=== PATIENT | female | born 1950 | race Caucasian/White ===

== ENCOUNTER → 2017-12-21 11:58 | Outpatient (CLI) | payer MEDICARE, SELFPAY ==
[2017-12-21 13:10] LABS: Add Manual Diff / Slide Review NO; Basophils Percent Auto 2.3 % (0-2); Eosinophils Percent Auto 3.7 % (2-4); Hematocrit 36.3 % (36-46); Hemoglobin 12.7 g/dL (12.0-16.0); Lymphocytes Percent Auto 47.9 % (25-40); Mean Corpuscular Hemoglobin 30.5 PG (26-34); Mean Corpuscular Volume 87.2 fL (80-100); Monocytes Percent Auto 7.7 % (3-14); Neutrophils Absolute Auto 2400 /uL (3000-5900); Neutrophils Percent Auto 38.4 % (50-75); Platelet Count 288 X10^3/uL (150-400); Red Blood Cell Count 4.16 X10^6/uL (4.0-5.2); Red Cell Distribution Width 12.4 % (11.6-14.8); White Blood Cell Count 6.2 X10^3/uL (4.5-11.0)
[2017-12-21 13:22] LABS: Alanine Aminotransferase 22 IU/L (9-52); Albumin Globulin Ratio 1.4 (1.0-2.8); Alkaline Phosphatase 61 U/L (38-126); Aspartate Aminotransferase 23 IU/L (14-36); BUN Creatinine Ratio 28.3 (6-22); Bilirubin Total 0.5 mg/dL (0.2-1.3); Calcium 9.1 mg/dL (8.4-10.2); Cholesterol 188 mg/dL (140-199); Estimated Glomerular Filt Rate > 60.0 mL/min (>60); Globulin 2.9 g/dL (1.7-4.1); Glucose 81 mg/dL (80-110); HDL Cholesterol 43 mg/dL (40-60); HEMOLYSIS < 15 (0-50); LDL Cholesterol Calculated 126 mg/dL (<100); Potassium 4.5 mmol/L (3.4-5.1); Sodium 139 mmol/L (137-145); Total Protein 6.9 g/dL (6.3-8.2); Triglycerides 96 mg/dL (35-150)
[2017-12-21 13:52] LABS: Thyroid Stimulating Hormone 1.44 uIU/mL (0.47-4.68)
== END ==
PROVIDERS: Family Provider Family Medicine; PCP Family Medicine; Visit Provider Family Medicine
DX: R53.83 Other fatigue (principal); E78.5 Hyperlipidemia, unspecified
CPT/HCPCS: 36415; 80053; 80061; 84443; 85025

== ENCOUNTER 2018-11-04 21:51 | Emergency (ER) | payer MEDICARE, SELFPAY ==
[2018-11-04 21:57] VITALS: BP 170/68; PULSE 74; RESP 18; TEMP 36.2; O2SAT 99; BMI 22.1
[2018-11-04] MEDS: EPINEPHrine 1 MG/ML AMPUL 0.5 MG IM (22:17)
[2018-11-04] MEDS: FAMOTIDINE 20 MG/50 ML PIGGYBACK 200 MG IV (22:17)
[2018-11-04] MEDS: methylPREDNISolone 125 MG/2 ML VIAL IV (22:18)
[2018-11-04 22:30] VITALS: BP 118/29; PULSE 105; RESP 21; O2SAT 100
--- NOTE | 2018-11-04 22:50 | PC.NURSE ---
patient given ice chips. provider okayed. no new orders at this time.
[2018-11-04 23:00] VITALS: BP 117/69; PULSE 92; RESP 20; O2SAT 98
--- NOTE | 2018-11-04 23:04 | ED.ALLEREA ---
HPI - Allergic Reaction General Chief complaint: Allergic Reaction Stated complaint: allergic reaction, throat closing up Time Seen by Provider: 11/04/18 21:53 Source: patient and family Mode of arrival: ambulatory Limitations: no limitations History of Present Illness HPI narrative: 68-year-old female nonsmoker with history exercise induced asthma and food related allergic reactions presents with her in the chief complaint of facial itching, redness and swelling as well as tongue swelling after eating a new type of partida. She has had prior food related allergic reactions to shrimp and various others but never to partida or other similar foods. She denies any new medications, lotions, soaps or other potential triggers. She denies any trouble breathing and has no welts or other type rash. She denies any abdominal pain or diarrhea. She took 75 mg of Benadryl prior to arrival MD complaint: allergic reaction and facial swelling Onset (ago): minute(s) Exposure: food Known history of allergy to: Trip Symptoms: rash and difficulty swallowing Severity: moderate Treatment prior to arrival: benadryl Previous Allergic Reaction History: prior ED visit(s) Related Data Home Medications Medication Instructions Recorded Confirmed [CMP ESTRIOL] See Rx Instructions VAGINAL SEE 12/27/17 12/27/17 INSTRUCTIONS gm diphenhydramine HCl [Benadryl] 100 mg PO Q4-6H PRN 11/04/18 11/04/18 estradiol 11/04/18 Previous Rx's Medication Instructions Recorded conjugated estrogens [Premarin] 1 adan VAGINAL QDAY #30 gm 04/07/16 sulfamethoxazole-trimethoprim 1 tab PO BID #10 tab 01/28/17 albuterol sulfate [Proventil HFA] 0 INH SEE INSTRUCTIONS #17 gm 05/18/17 ciprofloxacin HCl 750 mg PO BID #28 tab 08/09/17 estradiol 0.5 mg PO QDAY #90 tab 06/13/18 prednisone 40 mg PO DAILY 4 Days #8 tab 11/04/18 Allergies Allergy/AdvReac Type Severity Reaction Status Date / Time shellfish derived Allergy Mild SHRIMP AND Verified 11/04/18 22:00 [SHELLFISH DERIVED] SHELLFISH shrimp Allergy Verified 11/04/18 22:00 codeine [CODEINE] AdvReac Severe VERY ILL Verified 11/04/18 22:00 Review of Systems Review of Systems ROS Unobtainable: All systems reviewed & are unremarkable except as noted in HPI and below Constitutional Denies chills, Denies fever(s), Denies lethargy and Denies weakness Eyes Denies change in vision, Denies eye discharge, Denies irritation and Denies loss of vision ENT Ears, Nose, Mouth, and Throat: Denies change in voice, Denies neck pain, Denies sore throat and Reports tongue swelling Cardiovascular Denies chest pain, Denies irregular heart rhythm, Denies lightheadedness, Denies palpitations, Denies dyspnea, Denies dyspnea on exertion and Denies orthopnea Respiratory Denies cough, Denies dyspnea, Denies dyspnea on exertion and Denies wheezing Gastrointestinal Gastrointestinal: Denies abdominal pain, Denies change in bowel habits, Denies diarrhea, Denies nausea and Denies vomiting Genitourinary Denies hematuria, Denies flank pain, Denies urinary incontinence and Denies urinary urgency Musculoskeletal Denies neck pain Integumentary/Breasts Denies pruritus, Denies erythema, Reports rash (mild on face, largely gone by arrival) and Denies wounds Neurologic Denies confusion, Denies loss of vision and Denies weakness Psychiatric Denies anxiety, Denies confusion, Denies depression, Denies homicidal ideation and Denies suicidal ideation Endocrine Denies palpitations Hematologic/Lymphatic Denies easy bruising Allergic/Immunologic Reports tongue swelling and Denies wheezing [facility] Surgical History History of carpal tunnel repair History of carpal tunnel repair History of tonsillectomy S/P total abdominal hysterectomy and bilateral salpingo-oophorectomy Status post hysterectomy Status post hysterectomy Family History (Updated 08/26/14 @ 00:00 by Conversion Provider) Father Heart disease Grandfather Lung disease Grandmother Broken hip Grandfather Colon cancer Grandmother Stroke Social History Smoking Status: Never smoker Family History Father Heart disease Grandfather Lung disease Grandmother Broken hip Grandfather Colon cancer Grandmother Stroke Social History Smoking Status: Never smoker Exam Narrative Exam Narrative: GENERAL: 68-year-old female appears younger than stated age and in no obvious or significant distress HEAD: Atraumatic. Normocephalic. No temporal or scalp tenderness. EYES: Pupils equal round and reactive. Extraocular motions intact. No scleral icterus. No injection or drainage. ENT: Nose without bleeding, purulent drainage or septal hematoma. Throat without erythema, tonsillar hypertrophy or exudate. Uvula midline. Airway patent. NECK: Trachea midline. No JVD or lymphadenopathy. Supple, nontender, no meningeal signs. CARDIOVASCULAR: Regular rate and rhythm without murmurs, gallops, or rubs. RESPIRATORY: Clear to auscultation. Breath sounds equal bilaterally. No wheezes, rales, or rhonchi. GASTROINTESTINAL: Abdomen soft, non-tender, nondistended. No hepato-splenomegaly, or palpable masses. No guarding. EXTREMITIES: No clubbing, cyanosis, or edema. No joint tenderness, effusion, or edema noted. BACK: Nontender without deformity or crepitance. No flank tenderness. NEURO: AOx3. SKIN: No rash or erythema. Initial Vital Signs Initial Vital Signs: Vital Signs Temperature 97.2 F L 11/04/18 21:57 Pulse Rate 74 11/04/18 21:57 Respiratory Rate 18 11/04/18 21:57 Blood Pressure 170/68 H 11/04/18 21:57 Pulse Oximetry 99 11/04/18 21:57 Course Orders Ordered: Discontinued Medications Epinephrine HCl (Adrenalin) 0.5 mg IM NOW ONE Stop: 11/04/18 22:14 Last Admin: 11/04/18 22:17 Dose: 0.5 mg Epinephrine HCl (Adrenalin) 0.5 mg IM NOW ONE Stop: 11/04/18 22:14 Last Admin: 11/04/18 22:28 Dose: Not Given Famotidine (Pepcid) 20 mg in 50 mls @ 200 mls/hr IV NOW ONE Stop: 11/04/18 22:27 Last Infusion: 11/04/18 22:44 Dose: 0 mls/hr Admin: 11/04/18 22:17 Dose: 200 mls/hr Methylprednisolone (Solu-Medrol 125 Mg Vial) 125 mg IV NOW ONE Stop: 11/04/18 22:14 Last Admin: 11/04/18 22:18 Dose: 125 mg Vital Signs - 8 hr 11/04/18 21:57 11/04/18 22:30 11/04/18 23:00 Temperature 97.2 F L Pulse Rate 74 105 H 92 H Respiratory Rate 18 21 20 Blood Pressure 170/68 H Blood Pressure [Left Arm] 118/29 L 117/69 Pulse Oximetry 99 100 98 MDM - Allergic Reaction MDM Narrative Medical decision making narrative: Multiple etiologies for patient's symptoms considered including: [Allergic reaction to food, other environmental exposure versus other] Patient's symptoms improved or duration of stay with above-stated therapies. Findings and discharge diagnosis discussed with patient/family followed by verbalization of understanding Return precautions discussed with patient/family whom verbalize understanding. Discharge Plan Departure Patient Disposition: Home Clinical Impression: Allergic reaction Qualifiers: Encounter type: initial encounter Qualified Code(s): T78.40XA - Allergy, unspecified, initial encounter Discharge Date/Time: 11/04/18 23:28 Interventions: ED Discharge Assessment Last Done: 11/04/18 23:27 Instructions: DI for General Allergic Reactions Activity Restrictions/Additional Instructions: *You have been diagnosed with [ allergic reaction ] *What to do: *Take medications as directed: over the counter benadryl, pepcid as well as prescription for Prednisone. *Follow up with your primary care provider in 2-3 days, call for an appointment. Let them know you were seen in the Emergency Department and that we ask that you be seen in follow up *Return to ER if you should have any new, worsening or concerning symptoms, such as [ difficulty breathing, swelling, trouble swallowing or other bothersome symptoms Prescriptions: New prednisone 20 mg tablet 40 mg PO DAILY 4 Days Qty: 8 RF: 0 No Action conjugated estrogens [Premarin] 0.625 MG/GM cream 1 adan Vaginal QDAY Qty: 30 RF: 3 sulfamethoxazole-trimethoprim 800 MG/160 MG tablet 1 tab PO BID Qty: 10 RF: 0 albuterol sulfate [Proventil HFA] 90 MCG/PUFF HFA aerosol inhaler INH SEE INSTRUCTIONS Qty: 17 RF: 3 ciprofloxacin HCl 750 MG tablet 750 mg PO BID Qty: 28 RF: 0 estradiol 0.5 mg tablet 0.5 mg PO QDAY Qty: 90 RF: 3 [CMP ESTRIOL] cream See Patient Comments Vaginal SEE INSTRUCTIONS RF: 3 estradiol 0.5 mg tablet RF: 0 diphenhydramine HCl [Benadryl] 25 mg Capsule 100 mg PO Q4-6H PRN (Reason: Allergy Symptoms) RF: 0 Referrals: Zenon Sood MD [Primary Care Provider] -
== END 2018-11-04 23:28 | disposition home or self-care (01) ==
PROVIDERS: Emergency Provider Emergency Medicine; PCP Family Medicine
DX: T78.40XA Allergy, unspecified, initial encounter (principal)
CPT/HCPCS: 96365; 96375; 99283; 99284; J0171; J2930

== ENCOUNTER → 2018-12-25 14:19 | Outpatient (CLI) | payer MEDICARE, SELFPAY ==
[2018-12-25 14:58] LABS: Add Manual Diff / Slide Review NO; Basophils Absolute Auto 100 /uL (0-100); Basophils Percent Auto 1.4 % (0-2); Eosinophils Absolute Auto 300 /uL (0-450); Eosinophils Percent Auto 3.9 % (2-4); Hematocrit 41.3 % (36-46); Hemoglobin 13.8 g/dL (12.0-16.0); Lymphocytes Absolute Auto 3400 /uL (1100-4500); Lymphocytes Percent Auto 51.5 % (25-40); Mean Corpuscular HGB Conc 33.4 % (30-36); Mean Corpuscular Hemoglobin 29.9 PG (26-34); Mean Corpuscular Volume 89.4 fL (80-100); Monocytes Absolute Auto 500 /uL (0-900); Monocytes Percent Auto 7.2 % (3-14); Neutrophils Absolute Auto 2400 /uL (1500-7000); Platelet Count 290 X10^3/uL (150-400); Red Blood Cell Count 4.62 X10^6/uL (4.0-5.2); Red Cell Distribution Width 12.4 % (11.6-14.8); White Blood Cell Count 6.6 X10^3/uL (4.5-11.0)
[2018-12-25 15:13] LABS: Alanine Aminotransferase 25 IU/L (9-52); Albumin 4.5 g/dL (3.5-5.0); Albumin Globulin Ratio 1.7 (1.0-2.8); Alkaline Phosphatase 61 U/L (38-126); Aspartate Aminotransferase 28 IU/L (14-36); Bilirubin Total 0.5 mg/dL (0.2-1.3); Blood Urea Nitrogen 12 mg/dL (7-17); Calcium 9.4 mg/dL (8.4-10.2); Carbon Dioxide 29 mmol/L (22-32); Chloride 100 mmol/L (98-107); Cholesterol 229 mg/dL (140-199); Estimated Glomerular Filt Rate > 60.0 mL/min (>60); Globulin 2.7 g/dL (1.7-4.1); Glucose 83 mg/dL (80-110); HDL Cholesterol 54 mg/dL (40-60); HEMOLYSIS < 15 (0-50); LDL Cholesterol Calculated 149 mg/dL (<100); Potassium 4.2 mmol/L (3.4-5.1); Sodium 139 mmol/L (137-145); Total Protein 7.2 g/dL (6.3-8.2); Triglycerides 130 mg/dL (35-150)
[2018-12-25 15:43] LABS: Thyroid Stimulating Hormone 2.62 uIU/mL (0.47-4.68)
== END ==
PROVIDERS: PCP Family Medicine; Visit Provider Family Medicine
DX: E78.5 Hyperlipidemia, unspecified (principal)
CPT/HCPCS: 36415; 80053; 80061; 84443; 85025

== ENCOUNTER → 2018-12-26 14:38 | Outpatient (CLI) | payer MEDICARE, SELFPAY ==
--- NOTE | 2018-12-26 | DI.MG.S_ITS ---
BILATERAL DIGITAL SCREENING MAMMOGRAM 3D/2D WITH CAD: 12/26/2018 CLINICAL: Routine screening. Comparison is made to exams dated: 12/22/2017 mammogram, 12/14/2016 mammogram, and 12/05/2015 mammogram - [facility]. The tissue of both breasts is heterogeneously dense. This may lower the sensitivity of mammography. Current study was also evaluated with a Computer Aided Detection (CAD) system. There are benign calcifications in both breasts. No significant masses, calcifications, or other findings are seen in either breast. There has been no significant interval change. IMPRESSION: There is no mammographic evidence of malignancy. A 1 year screening mammogram is recommended. This exam was interpreted at Station ID: [id number]. NOTE: For mammograms, a report in lay terms will be sent to the patient. Approximately 15% of breast malignancies will not be visualized mammographically. In the management of a palpable breast mass, a negative mammogram must not discourage biopsy of a clinically suspicious lesion. Electronically Signed By: Jeff goodman/manisha:12/26/2018 16:45:44 letter sent: Normal Exam ACR BI-RADS Category 2: Benign Finding(s) 3342F
== END ==
PROVIDERS: PCP Family Medicine; Visit Provider Family Medicine
DX: Z12.31 Encounter for screening mammogram for malignant neoplasm of breast (principal)
CPT/HCPCS: 77063; 77067

== ENCOUNTER 2019-05-15 13:11 | Emergency (ER) | payer MEDICARE, SELFPAY ==
[2019-05-15 13:27] VITALS: BP 123/77; PULSE 81; RESP 14; TEMP 36.2; O2SAT 98; BMI 21.6
--- NOTE | 2019-05-15 13:32 | DI.US.S_ITS ---
PROCEDURE: US PERIPH VENOUS LOW EXTREM RT INDICATIONS: CALF PAIN/SWELLING TECHNIQUE: Real-time imaging, as well as color and pulse Doppler interrogation, were performed of the lower extremity deep veins from the inguinal ligament to the popliteal fossa. COMPARISON: None. FINDINGS: The common femoral, femoral and popliteal veins are normally compressible, and free of intraluminal thrombus. Color and pulse Doppler demonstrate normal phasic intraluminal flow. There is normal augmentation response to distal compression maneuver. IMPRESSION: Negative for deep venous thrombosis. Dictated by: Dylan Gleason M.D. on 05/15/2019 at 13:23 Approved by: Dylan Gleason M.D. on 05/15/2019 at 13:24
--- NOTE | 2019-05-15 13:59 | ED_ITS ---
HPI - Extremity Problem <Dania Montero PA-C - Last Filed: 05/15/19 17:04> General Chief complaint: Extremity Problem,Nontraumatic Stated complaint: RIGHT LEG PAIN Time Seen by Provider: 05/15/19 13:32 Source: patient Mode of arrival: Wheelchair Limitations: no limitations History of Present Illness HPI Narrative: This 69-year-old female comes to ED secondary to acutely worsening right calf pain. She states that she noticed this Tuesday evening, does not remember any specific trauma but did trip week or 2 ago, did notice any pain at the time and has been walking a couple of miles daily. She denies other trauma. She states pain felt a little better Tuesday, still present on Tuesday. Saw her chiropractor for adjustment and thought somewhat better after that as well. Today, she was cleaning and standing on a chair. She stepped down onto that foot and felt severe pain in the calf and had trouble walking after that. She states the calf felt warm. She iced it which seemed to help that but not the pain very much. She states pain is better now than earlier. She denies any swelling in the leg. She denies any bites or rashes. She denies any chest pain or dyspnea. No recent periods of immobility. No history of blood clots. States she has felt otherwise well. She has not tried any other home treatments aside from ice Related Data Home Medications Medication Instructions Recorded Confirmed [CMP ESTRIOL] See Rx Instructions VAGINAL SEE 12/27/17 12/28/18 INSTRUCTIONS gm diphenhydramine HCl [Benadryl] 100 mg PO Q4-6H PRN 11/04/18 12/28/18 estradiol 11/04/18 12/28/18 Previous Rx's Medication Instructions Recorded conjugated estrogens [Premarin] 1 adan VAGINAL QDAY #30 gm 04/07/16 estradiol 0.5 mg PO QDAY #90 tab 06/13/18 Allergies Allergy/AdvReac Type Severity Reaction Status Date / Time shellfish derived Allergy Mild SHRIMP AND Verified 05/15/19 13:27 [SHELLFISH DERIVED] SHELLFISH shrimp Allergy Verified 05/15/19 13:27 codeine [CODEINE] AdvReac Severe VERY ILL Verified 05/15/19 13:27 Review of Systems <Dania Montero PA-C - Last Filed: 05/15/19 17:04> Review of Systems ROS Unobtainable: All systems reviewed & are unremarkable except as noted in HPI and below PFSH <Dania Montero PA-C - Last Filed: 05/15/19 17:04> Medical History (Updated 05/15/19 @ 15:15 by Dania Montero PA-C) No chronic problems (Acute) Surgical History History of carpal tunnel repair History of carpal tunnel repair History of tonsillectomy S/P total abdominal hysterectomy and bilateral salpingo-oophorectomy Status post hysterectomy Status post hysterectomy Family History Father Heart disease Grandfather Lung disease Grandmother Broken hip Grandfather Colon cancer Grandmother Stroke Social History Smoking Status: Never smoker Family History Father Heart disease Grandfather Lung disease Grandmother Broken hip Grandfather Colon cancer Grandmother Stroke Social History Smoking Status: Never smoker Exam <Dania Montero PA-C - Last Filed: 05/15/19 17:04> Narrative Exam Narrative: GENERAL APPEARANCE: Patient sitting comfortably, in no distress. NECK/THYROID: Neck supple LUNGS: Clear to auscultation bilaterally. HEART: Regular rate and rhythm without murmur, normal S1, S2, no S3 or S4. EXTREMITIES: No cyanosis or edema. Bilateral PT and DP pulses intact NEUROLOGIC: Alert and oriented, normal speech and coordination. DERMATOLOGIC: No exanthem or wounds MUSCULOSKELETAL: No tenderness over the right foot or ankle, full range of motion. Achilles is intact by palpation, no point tenderness over the Achilles. Tender over the distal to mid calf in the midline. No tenderness over the knee or popliteal fossa. Full range of motion at the knee and hip. Initial Vital Signs Initial Vital Signs: Vital Signs Temperature 97.2 F L 05/15/19 13:27 Pulse Rate 81 05/15/19 13:27 Respiratory Rate 14 05/15/19 13:27 Blood Pressure 123/77 05/15/19 13:27 Pulse Oximetry 98 05/15/19 13:27 <DO Landon Aguirre Last Filed: 05/16/19 07:46> Initial Vital Signs Initial Vital Signs: Vital Signs Temperature 97.2 F L 05/15/19 13:27 Pulse Rate 81 05/15/19 13:27 Respiratory Rate 14 05/15/19 13:27 Blood Pressure 123/77 05/15/19 13:27 Pulse Oximetry 98 05/15/19 13:27 Course <Dania Montero PA-C - Last Filed: 05/15/19 17:04> Orders Ordered: ED Orders 05/15/19 13:32 US periph venous low extrem rt Stat Vital Signs Vital signs: Vital Signs - 8 hr 05/15/19 13:27 05/15/19 14:33 05/15/19 15:13 Temperature 97.2 F L Pulse Rate 81 74 Pulse Rate [Dorsalis Pedis] 71 Respiratory Rate 14 17 Blood Pressure 123/77 130/74 Pulse Oximetry 98 99 <DO Landon Aguirre Last Filed: 05/16/19 07:46> Orders Ordered: ED Orders 05/15/19 13:32 US periph venous low extrem rt Stat Vital Signs Vital signs: Vital Signs - 8 hr 05/15/19 13:27 05/15/19 14:33 05/15/19 15:13 Temperature 97.2 F L Pulse Rate 81 74 Pulse Rate [Dorsalis Pedis] 71 Respiratory Rate 14 17 Blood Pressure 123/77 130/74 Pulse Oximetry 98 99 MDM - Extremity (Nontraumatic) <IVY Culp Last Filed: 05/15/19 17:04> Imaging Data Venous US: Radiologist's impression: Carleen Hung P 69 F [address] [address] Ultrasound Report Signed Patient: Carleen Hung PMR#: [id number] : 8Acct:[id number] Age/Sex: 69 / FDate of Service: 05/15/19 Loc: ED Accession Number: [id number] Procedure: US periph venous low extrem rt Ordering Provider: Dania Montero P.A-C PROCEDURE: PERIP VENOUS LOW EXTREM RT INDICATIONS: CALF PAIN/SWELLING TECHNIQUE: Real-time imaging, as well as color and pulse Doppler interrogation, were performed of the lower extremity deep veins from the inguinal ligament to the popliteal fossa. COMPARISON: None. FINDINGS: The common femoral, femoral and popliteal veins are normally compr essible, and free of intraluminal thrombus. Color and pulse Doppler demonstrate normal phasic intraluminal flow. There is normal augmentation response to distal compression maneuver. IMPRESSION: Negative for deep venous thrombosis. Dictated by: Dylan Gleason M.D. on 05/15/2019 at 13:23 Approved by: Dylan Gleason M.D. on 05/15/2019 at 13:24 Discharge Plan Departure Patient Disposition: Home Clinical Impression: Strain of calf muscle Qualifiers: Encounter type: initial encounter Laterality: right Qualified Code(s): S86.811A - Strain of other muscle(s) and tendon(s) at lower leg level, right leg, initial encounter Discharge Date/Time: 05/15/19 15:14 Instructions: DI for Calf Muscle Strain Activity Restrictions/Additional Instructions: I suspect that you have strain/partially torn the muscle in your calf given the way you described the pain worsening today when you stepped down. There was no sign of a blood clot on your scan. Please rest your calf muscle and limit to gentle walking on flat ground. Wear the Zia/compression wrap if it seems to help. Please elevate your leg above your heart, and you can use ice today, then alternate ice and heat if those are helpful. Try taking 1 Aleve every 12 hours to help with pain and inflammation, and you can add Tylenol as needed. See your PCP in a week or so if this is not improving as you may need a referral, i.e. for physical therapy. As we talked about please return if you have any acute changes or worsening symptoms in the interim. Prescriptions: No Action conjugated estrogens [Premarin] 0.625 MG/GM cream 1 adan Vaginal QDAY Qty: 30 RF: 3 estradiol 0.5 mg tablet 0.5 mg PO QDAY Qty: 90 RF: 3 [CMP ESTRIOL] cream See Rx Instructions Vaginal SEE INSTRUCTIONS RF: 3 estradiol 0.5 mg tablet RF: 0 diphenhydramine HCl [Benadryl] 25 mg Capsule 100 mg PO Q4-6H PRN (Reason: Allergy Symptoms) RF: 0 Referrals: Zenon Sood MD [Primary Care Provider] -
[2019-05-15 14:33] VITALS: PULSE 71
[2019-05-15 15:13] VITALS: BP 130/74; PULSE 74; RESP 17; O2SAT 99
== END 2019-05-15 15:14 | disposition home or self-care (01) ==
PROVIDERS: Emergency Provider Internal Medicine; PCP Family Medicine
DX: S86.811A Strain of other muscle(s) and tendon(s) at lower leg level, right leg, initial encounter (principal)
CPT/HCPCS: 93971; 99282; 99283

== ENCOUNTER → 2020-02-29 15:28 | Outpatient (CLI) | payer MEDICARE, SELFPAY ==
[2020-02-29 16:49] LABS: Add Manual Diff / Slide Review NO; Basophils Absolute Auto 100 /uL (0-100); Basophils Percent Auto 1.9 % (0-2); Eosinophils Absolute Auto 200 /uL (0-450); Eosinophils Percent Auto 2.5 % (2-4); Hematocrit 39.7 % (36-46); Hemoglobin 13.4 g/dL (12.0-16.0); Lymphocytes Absolute Auto 2600 /uL (1100-4500); Lymphocytes Percent Auto 37.9 % (25-40); Mean Corpuscular HGB Conc 33.7 % (30-36); Mean Corpuscular Volume 89.2 fL (80-100); Monocytes Absolute Auto 600 /uL (0-900); Monocytes Percent Auto 8.8 % (3-14); Neutrophils Absolute Auto 3400 /uL (1500-7000); Neutrophils Percent Auto 48.9 % (50-75); Platelet Count 286 X10^3/uL (150-400); Red Blood Cell Count 4.45 X10^6/uL (4.0-5.2); Red Cell Distribution Width 12.4 % (11.6-14.8)
[2020-02-29 17:18] LABS: Alanine Aminotransferase 19 IU/L (<35); Albumin 4.6 g/dL (3.5-5.0); Albumin Globulin Ratio 1.8 (1.0-2.8); Alkaline Phosphatase 75 U/L (38-126); Aspartate Aminotransferase 28 IU/L (14-36); BUN Creatinine Ratio 19.7 (6-22); Bilirubin Total 0.4 mg/dL (0.2-1.3); Blood Urea Nitrogen 15 mg/dL (7-17); Carbon Dioxide 32 mmol/L (22-32); Chloride 100 mmol/L (98-107); Cholesterol 208 mg/dL (140-199); Estimated Glomerular Filt Rate > 60.0 mL/min (>60); Globulin 2.5 g/dL (1.7-4.1); Glucose 81 mg/dL (80-110); HDL Cholesterol 55 mg/dL (40-60); HEMOLYSIS < 15 (0-50); LDL Cholesterol Calculated 118 mg/dL (<100); Sodium 138 mmol/L (137-145); Total Protein 7.1 g/dL (6.3-8.2); Triglycerides 173 mg/dL (35-150)
== END ==
PROVIDERS: PCP Family Medicine; Referring Provider Family Medicine; Visit Provider Family Medicine
DX: E78.5 Hyperlipidemia, unspecified (principal); N95.1 Menopausal and female climacteric states; Z87.81 Personal history of (healed) traumatic fracture
CPT/HCPCS: 36415; 80053; 80061; 85025

== ENCOUNTER → 2020-12-18 11:41 | Outpatient (CLI) | payer MEDICARE, OTHER, SELFPAY ==
--- NOTE | 2020-12-18 11:47 | DI.MG.S_ITS ---
BILATERAL DIGITAL SCREENING MAMMOGRAM 3D/2D WITH CAD: 12/18/2020 CLINICAL: Routine screening. Comparison is made to exams dated: 12/26/2018 mammogram, 12/22/2017 mammogram, and 12/14/2016 mammogram - [facility]. The tissue of both breasts is heterogeneously dense. This may lower the sensitivity of mammography. Current study was also evaluated with a Computer Aided Detection (CAD) system. There are benign calcifications in both breasts. No significant masses, calcifications, or other findings are seen in either breast. There has been no significant interval change. IMPRESSION: BENIGN There is no mammographic evidence of malignancy. A 1 year screening mammogram is recommended. This exam was interpreted at Station ID: [id number]. NOTE: For mammograms, a report in lay terms will be sent to the patient. Approximately 15% of breast malignancies will not be visualized mammographically. In the management of a palpable breast mass, a negative mammogram must not discourage biopsy of a clinically suspicious lesion. Electronically Signed By: Lito miles/manisha:12/18/2020 12:07:04 letter sent: Normal Exam ACR BI-RADS Category 2: Benign Finding(s) 3342F
== END ==
PROVIDERS: PCP Family Medicine; Referring Provider Family Medicine; Visit Provider Family Medicine
DX: Z12.31 Encounter for screening mammogram for malignant neoplasm of breast (principal)
CPT/HCPCS: 77063; 77067

== ENCOUNTER → 2021-12-31 09:36 | Outpatient (CLI) | payer MEDICARE, OTHER, SELFPAY ==
--- NOTE | 2021-12-31 | DI.MG.S_ITS ---
BILATERAL DIGITAL SCREENING MAMMOGRAM 3D/2D WITH CAD: 12/31/2021 CLINICAL: Routine screening. Comparison is made to exams dated: 12/18/2020 mammogram, 12/26/2018 mammogram, 12/22/2017 mammogram, 12/14/2016 mammogram, and 12/05/2015 mammogram - [facility]. The tissue of both breasts is heterogeneously dense. This may lower the sensitivity of mammography. Current study was also evaluated with a Computer Aided Detection (CAD) system. No significant masses, calcifications, or other findings are seen in either breast. There has been no significant interval change. IMPRESSION: NEGATIVE There is no mammographic evidence of malignancy. A 1 year screening mammogram is recommended. This exam was interpreted at Station ID: [id number]. NOTE: For mammograms, a report in lay terms will be sent to the patient. Approximately 15% of breast malignancies will not be visualized mammographically. In the management of a palpable breast mass, a negative mammogram must not discourage biopsy of a clinically suspicious lesion. Electronically Signed By: Wilmer lopez/manisha:12/31/2021 10:56:29 letter sent: Normal Exam ACR BI-RADS Category 1: Negative 3341F
== END ==
PROVIDERS: PCP Family Medicine; Referring Provider Family Medicine; Visit Provider Family Medicine
DX: Z12.31 Encounter for screening mammogram for malignant neoplasm of breast (principal)
CPT/HCPCS: 77063; 77067

== ENCOUNTER → 2022-01-02 10:15 | Outpatient (CLI) | payer MEDICARE, OTHER, SELFPAY ==
[2022-01-02 11:13] LABS: Alanine Aminotransferase 21 IU/L (<35); Albumin 4.9 g/dL (3.5-5.0); Albumin Globulin Ratio 1.5 (1.0-2.8); Alkaline Phosphatase 71 U/L (38-126); Aspartate Aminotransferase 33 IU/L (14-36); BUN Creatinine Ratio 25.4 (6-22); Bilirubin Total 0.5 mg/dL (0.2-1.3); Blood Urea Nitrogen 16 mg/dL (7-17); Calcium 9.5 mg/dL (8.4-10.2); Carbon Dioxide 27 mmol/L (22-32); Chloride 103 mmol/L (98-107); Cholesterol 220 mg/dL (140-199); Estimated Glomerular Filt Rate > 60 mL/min (>60); Globulin 3.2 g/dL (1.7-4.1); Glucose 95 mg/dL (80-110); HDL Cholesterol 56 mg/dL (40-60); HEMOLYSIS < 15 (0-50); LDL Cholesterol Calculated 144 mg/dL (<100); Potassium 4.5 mmol/L (3.4-5.1); Sodium 140 mmol/L (137-145); Total Protein 8.1 g/dL (6.3-8.2); Triglycerides 101 mg/dL (35-150)
[2022-01-02 11:58] LABS: TSH w/ Reflex to FT4 1.31 uIU/mL (0.47-4.68)
== END ==
PROVIDERS: PCP Family Medicine; Referring Provider Family Medicine; Visit Provider Family Medicine
DX: E78.5 Hyperlipidemia, unspecified (principal); J45.20 Mild intermittent asthma, uncomplicated
CPT/HCPCS: 36415; 80053; 80061; 84443

== ENCOUNTER 2022-05-16 23:35 | Emergency (ER) | payer MEDICARE, OTHER, SELFPAY ==
--- NOTE | 2022-05-16 23:40 | PC.NURSE ---
XRay at bedside
[2022-05-16 23:44] VITALS: BP 138/73; PULSE 75; RESP 18; O2SAT 99; BMI 21.2
--- NOTE | 2022-05-16 23:45 | PC.NURSE ---
Pt gowned and placed on registered nurse cardiac with cycling BP and continuous pulse ox - EKG performed and IV started with lab draw - assessment completed at this time - family at bedside - warm blankets given for comfort - c/o nausea without vomiting - no other needs voiced
--- NOTE | 2022-05-16 23:47 | DI.RAD.S_ITS ---
PROCEDURE: XR CHEST 1V INDICATIONS: chest pain TECHNIQUE: One view of the chest was acquired. COMPARISON: [facility], , CHEST 2 VIEW, 09/12/2012, 15:20. FINDINGS: Surgical changes and devices: None. Lungs and pleura: Lungs are clear. No pleural effusions or pneumothorax. Mediastinum: Mediastinal contours appear normal. Heart size is normal. Bones and chest wall: No suspicious bony lesions. Overlying soft tissues appear unremarkable. IMPRESSION: Normal for age, source of current chest pain symptoms is not seen. Dictated by: Remi Farmer M.D. on 05/17/2022 at 0:03 Approved by: Remi Farmer M.D. on 05/17/2022 at 0:04
[2022-05-17] VITALS (8 sets, daily range): BP systolic 170–188; BP diastolic 77–80; PULSE 75–87; RESP 16–39; O2SAT 96–100
[2022-05-17 00:07] LABS: Hematocrit 39.2 % (36-46); Hemoglobin 13.2 g/dL (12.0-16.0); Mean Corpuscular HGB Conc 33.7 % (30-36); Mean Corpuscular Hemoglobin 29.8 PG (26-34); Mean Corpuscular Volume 88.3 fL (80-100); Platelet Count 232 X10^3/uL (150-400); Red Blood Cell Count 4.44 X10^6/uL (4.0-5.2); Red Cell Distribution Width 12.6 % (11.6-14.8); White Blood Cell Count 13.3 X10^3/uL (4.5-11.0)
[2022-05-17 00:08] LABS: Add Manual Diff / Slide Review YES
--- NOTE | 2022-05-17 00:14 | ED_ITS ---
HPI - Chest Pain General Chief Complaint: Chest Pain Stated Complaint: severe Abd pain Time Seen by Provider: 05/16/22 23:43 Source: patient Mode of arrival: Ambulatory History of Present Illness HPI narrative: 72-year-old woman on postmenopausal hormone replacement only presents with acute epigastric to right upper quadrant abdominal pain starting approximately 5:00 p.m. this evening. She tried to induce vomiting but found that that did not help. Pepto-Bismol did not make a difference. She describes no fever, cough, palpitations, dyspnea, diarrhea, orthopnea, lower extremity edema. She notes that she has done gallbladder cleanses in the past to help get rid of gallstones but has not had any overt pain or complication from a gallstones. It is not clear that she has been formally diagnosed with gallstones however she does re port seeing them in her stool after a gallbladder complaints. She did 1 such cleanse approximately 2 months ago had some stones come out but reports that it was not as many as she has had with previous cleanses. Related Data Home Medications Medication Instructions Recorded Confirmed diphenhydramine HCl 25 mg capsule 100 mg PO Q4-6H PRN Allergy 11/04/18 07/08/20 (Benadryl) Symptoms Previous Rx's Medication Instructions Recorded conjugated estrogens 0.625 mg/gram 1 applictn vaginal QDAY #30 grams 03/04/20 vaginal cream (Premarin) estradiol 0.5 mg tablet See Rx Instructions .Route 04/01/21 .COMPLEX #90 tabs acyclovir 400 mg tablet 400 mg PO QID #60 tabs 09/10/21 sodium sul 1.479 gram-potas ch See Rx Instructions PO PER PKG DIR 12/10/21 0.188 gram-magnes sul 0.225 gram #24 tabs tablet (Sutab) Allergies Allergy/AdvReac Type Severity Reaction Status Date / Time shellfish derived Allergy Mild SHRIMP AND Verified 07/08/20 14:42 [SHELLFISH DERIVED] SHELLFISH shrimp Allergy Verified 07/08/20 14:42 codeine [CODEINE] AdvReac Severe VERY ILL Verified 07/08/20 14:42 Review of Systems Review of Systems Narrative: Remainder of complete review of systems is otherwise unremarkable except for that included in the HPI. Patient History Medical History Encounter for outpatient evaluation and management for new patient Fracture of fibula (02/05/15) Grieving Laceration No chronic problems Surgical History History of carpal tunnel repair History of carpal tunnel repair History of tonsillectomy S/P total abdominal hysterectomy and bilateral salpingo-oophorectomy Status post hysterectomy Status post hysterectomy Family History Father Heart disease Grandfather Lung disease Grandmother Broken hip Grandfather Colon cancer Grandmother Stroke Social History marital status: Smoking Status: Former smoker alcohol intake: current (ON OCCASION ) substance use type: does not use Smoking Status: Former smoker alcohol intake frequency: other Substance Use Type: does not use Exam Initial Vital Signs Initial Vital Signs: Vital Signs Pulse Rate 75 05/16/22 23:44 Respiratory Rate 18 05/16/22 23:44 Blood Pressure 138/73 05/16/22 23:44 Pulse Oximetry 99 05/16/22 23:44 Oxygen Delivery Method 05/16/22 23:44 General: Healthy appearing, in no acute distress. Able to give a complete and coherent history. Well-nourished well-developed HEENT: Moist mucous membranes, normal sclera with reactive pupils, Neck: No JVD, supple Respiratory: Lungs are clear to auscultation, no wheezing no rales no rhonchi. Full and symmetrical air movement Cardiac: Regular rate and rhythm no murmurs no bruits Abdomen: Soft, moderate epigastric and right upper quadrant tenderness without rebound or guarding, good bowel tones, no flank pain Skin: Warm and dry, no rashes Neurologic: Grossly neurologically intact with no obvious asymmetries or abnormalities Extremities: No trauma, well perfused Psych: Cooperative, appropriate insight and affect Course Orders Ordered: ED Orders 05/16/22 23:45 Complete Blood Count AUTO DIFF Stat 05/16/22 23:47 XR chest 1V Stat EKG-12 Lead Stat 05/17/22 01:13 CT abdomen pelvis w con Stat 05/17/22 01:25 Comprehensive Metabolic Panel Stat Lipase Stat Magnesium Stat Troponin & CK Cardiac Panel Stat Fentanyl (Fentanyl 100 Mcg/2 Ml Inj) 25 mcg IV Q1H PRN PRN Reason: Pain, Severe (7-10) Last Admin: 05/17/22 01:29 Dose: 25 mcg Documented By: RONNIE Discontinued Medications Diphenhydramine HCl (Diphenhydramine 50 Mg/Ml Vial) 25 mg IV NOW ONE Stop: 05/17/22 01:40 Last Admin: 05/17/22 01:44 Dose: 25 mg Documented By: RENETTA Sodium Chloride (Normal Saline 0.9%) 1,000 mls @ 1,000 mls/hr IV BOLUS ONE Stop: 05/17/22 02:12 Last Admin: 05/17/22 01:29 Dose: 1,000 mls/hr Documented By: RONNIE Ondansetron HCl (Ondansetron 4 Mg/2 Ml Inj) 4 mg IV NOW ONE Stop: 05/17/22 01:14 Last Admin: 05/17/22 01:29 Dose: 4 mg Documented By: RONNIE Vital Signs Vital signs: Vital Signs - 8 hr 05/16/22 23:44 05/17/22 00:00 05/17/22 01:00 Pulse Rate 75 75 77 Respiratory Rate 18 16 16 Blood Pressure 138/73 170/77 H 188/78 H Pulse Oximetry 99 100 97 Oxygen Delivery Method Room Air Room Air Room Air 05/17/22 02:00 Pulse Rate 75 Respiratory Rate 18 Blood Pressure 183/79 H Pulse Oximetry 97 Oxygen Delivery Method Room Air MDM - Chest Pain Lab Data Result diagrams: 05/16/22 23:45 05/17/22 01:25 Labs: Lab Results 05/16/22 05/16/22 05/17/22 Range/Units 01:25 23:45 01:25 WBC 13.3 H (4.5-11.0) X10^3/uL RBC 4.44 (4.0-5.2) X10^6/uL Hgb 13.2 (12.0-16.0) g/dL Hct 39.2 (36-46) % MCV 88.3 (80-100) fL MCH 29.8 (26-34) PG MCHC 33.7 (30-36) % RDW 12.6 (11.6-14.8) % Plt Count 232 (150-400) X10^3/uL Neut % (Auto) Not Reportable Lymph % (Auto) Not Reportable Payne % (Auto) Not Reportable Eos % (Auto) Not Reportable Baso % (Auto) Not Reportable Lymph # (Auto) Not Reportable Payne # (Auto) Not Reportable Baso # (Auto) Not Reportable Sodium Cancelled 139 Potassium Cancelled 3.9 Chloride Cancelled 101 Carbon Dioxide Cancelled 27 BUN Cancelled 16 Creatinine Cancelled 0.55 Estimated GFR Cancelled > 60 BUN/Creatinine Ratio Cancelled 29.1 H Glucose Cancelled 146 H Calcium Cancelled 9.2 Magnesium Cancelled 1.8 Total Bilirubin Cancelled 1.4 H AST Cancelled 543 H ALT Cancelled 248 H Alkaline Phosphatase Cancelled 92 Total Creatine Kinase Cancelled 36 CK-MB (CK-2) Cancelled TNP CK-MB (CK-2) Rel Index Cancelled TNP Troponin I Cancelled < 0.012 Total Protein Cancelled 7.9 Albumin Cancelled 4.6 Globulin Cancelled 3.3 Albumin/Globulin Ratio Cancelled 1.4 Lipase Cancelled 112 Imaging Data Chest x-ray: Radiologist's Impression: FINDINGS:? ? Surgical changes and devices:? None.? ? Lungs and pleura:? Lungs are clear.? No pleural effusions or pneumothorax.? ? Mediastinum:? Mediastinal contours appear normal.? Heart size is normal.? ? Bones and chest wall:? No suspicious bony lesions.? Overlying soft tissues appear unremarkable.? ? IMPRESSION:? Normal for age, source of current chest pain symptoms is not seen. ? ? Dictated by: Remi Farmer M.D. on 05/17/2022 at 0:03 ? ? ECG Data Interpretation: Sinus rhythm at a rate of 72 Left bundle branch block No acute ischemic changes MDM Narrative Medical decision making narrative: 72-year-old woman presents with acute epigastric to right upper quadrant abdominal pain. Rather acute onset afebrile. Slightly elevated white blood cell count and moderately elevated AST ALT and bilirubin with normal alkaline phosphatase. CT scan of the abdomen does not suggest acute cholecystitis or di lated ducts. No evidence of pancreatitis, diverticulitis, appendicitis. She does not clinically have a surgical abdomen. There is no evidence of obstruction, urinary tract infection, kidney stones and I do not suspect ascending cholangitis. She does have quite a bit of stool in the right side al brittney with some gas which may be contributing to her pain. She has also had moderately elevated blood pressures throughout her emergency stay without a diagnosis of hypertension. Findings were reviewed with both patient and her . My recommendation was to use 4-6 doses of MiraLax and see if cleaning out her bowels helps with the pain. I have also recommended that she follow-up with her primary care physician sometime next week to discuss blood pressure and recheck blood work and make sure that her liver enzymes are returning to normal. She will be checking blood pressures outside of the emergency department and understands recommendations. He also clearly encouraged her to return should she develop fevers, vomiting, any type of jaundice or increasing abdominal pain. She is safe for discharge home at this time. Discharge Plan Departure Patient Disposition: Home Clinical Impression: Blood pressure elevated without history of HTN, Abnormal LFTs (liver function tests) Abdominal pain Qualifiers: Abdominal location: upper abdomen, unspecified Qualified Code(s): R10.10 - Upper abdominal pain, unspecified Instructions: DI for Abdominal Pain-Adult Activity Restrictions/Additional Instructions: Thank you for coming in today I did not find a life-threatening explanation for your pain today. Specifically there is no evidence of acute infection, acute cholecystitis, pancreatitis, or bowel obstruction. The CT scan did show quite a bit of stool in the right side of your colon and that may be causing her pain. I am going to suggest that you by some MiraLax at the grocery store tomorrow. The appropriate dose of MiraLax is however much it takes to have the bowel movement that you need. I am going to suggest that you start with 4-6 cap fulls of the powder in 3-4 glasses of water (this dissolves nicely in coffee and tea as well) and see if a large bowel movement helps alleviate your pain. Your blood pressure was elevated throughout your emergency room stay. I am going to suggest that you get a a blood pressure cuff and monitor home blood pressures. When you follow-up with Dr. Clayton in the next couple of weeks please review these blood pressures with him. Some of your liver enzymes were slightly elevated and I would like to make sure that these return to normal. Again, when you follow-up with your primary care physician, I would like to recheck this blood work. If you find that you are getting worse, you are developing fevers, have persistent vomiting, are unable to pass gas or develop any new or concerning symptoms, please return to the emergency department Prescriptions: No Action estradiol 0.5 mg tablet See Rx Instructions .ROUTE .COMPLEX Qty: 90 1RF Dose Instruction: TAKE ONE TABLET BY MOUTH EVERY DAY Rx Instructions: TAKE ONE TABLET BY MOUTH EVERY DAY acyclovir 400 mg tablet 400 mg PO QID Qty: 60 5RF Sutab 1.479-0.188- 0.225 gram tablet See Rx Instructions PO PER PKG DIR Qty: 24 0RF Rx Instructions: Take as directed by Physician. Premarin 0.625 mg/gram cream 1 applictn Vaginal QDAY Qty: 30 3RF diphenhydramine HCl [Benadryl] 25 mg Capsule 100 mg PO Q4-6H PRN (Reason: Allergy Symptoms) Referrals: Balaji Clayton MD [Primary Care Provider] -
--- NOTE | 2022-05-17 00:15 | PC.NURSE ---
MD at bedside - family at bedside
--- NOTE | 2022-05-17 00:59 | PC.NURSE ---
updated on status - the patient remains the same - does not want pain medication at this time
--- NOTE | 2022-05-17 01:13 | DI.CT.S_ITS ---
PROCEDURE: CT ABDOMEN PELVIS W CON INDICATIONS: upper abdominal pain TECHNIQUE: After the administration of oral and IV contrast, axial sections were acquired from the lung bases to the pubic symphysis. Coronal and sagittal reformats were performed. For radiation dose reduction, the following was used: automated exposure control, adjustment of mA and/or kV according to patient size. COMPARISON: [facility], CR, XR CHEST 1V, 05/16/2022, 23:47. FINDINGS: Image quality: Excellent. Lung bases: There is a 0.7 cm subpleural nodule in the right middle lobe. A subpleural density in lingula is most likely scars and atelectasis. Small hiatal hernia. Heart: No significant findings. ABDOMEN: Liver: Normal size. Mild hepatic steatosis. Gallbladder: Unremarkable. Biliary ducts: Unremarkable. Pancreas: Unremarkable. Spleen: Unremarkable. Adrenal Glands: Unremarkable. Kidneys and Ureters: Normal size and enhancement. There is a 0.9 cm low-density cortical nodule in the posterior cortex of the left kidney, most likely a cyst. Stomach and Bowel: Stomach, small bowel loops, and colon are normal in caliber. Mild diverticulosis without diverticulitis. Peritoneum: No abnormal intraperitoneal fluid. No free air. Ventral Wall: No hernia. Abdominal Nodes: No retroperitoneal or mesenteric adenopathy by size criteria. Vessels: Aorta and inferior vena cava are normal in size. PELVIS: Pelvic Organs: Unremarkable. Bladder: Unremarkable. Pelvic Nodes: No enlarged lymph nodes. Miscellaneous: No inguinal hernias are seen. Bones: Grade 1 anterolisthesis at L4-L5. Moderate degenerative disc and facet disease in lumbar spine. IMPRESSION: 1. No acute abnormalities in abdomen or pelvis. 2. Mild diverticulosis without diverticulitis. 3. Hepatic steatosis. 4. A 0.7 cm subcortical nodule in right middle lobe. Please see enclosed follow-up recommendation. 5. A density in lingula is probably atelectasis. Fleischner Society criteria for SOLID lung nodule followup. Nodule size (mm)Low-risk patientHigh-risk patient?4No follow-up neededFollow-up at 12 mo; if no change, no further follow-up>[id number] CT at 12 mo; if no change, no further follow-up needed.Initial follow-up CT at 6-12 mo, then 18-24 mo if no change. >6-8Initial follow-up CT at 6-12 mo, then 18-24 mo if no change. Initial follow-up CT at 3-6 mo, then 9-12 mo and 24 mo if no change. >8Follow-up CT at 3, 9, 24 mo. Or PET and/or biopsy.Same as for low-risk pts. No significant discrepancy with the assisted living administrator radiology preliminary report. Dictated by: Sandy Guthrie M.D. on 05/17/2022 at 8:23 Approved by: Sandy Guthrie M.D. on 05/17/2022 at 8:29
[2022-05-17] MEDS: fentaNYL 100 MCG/2 ML INJ 25 MCG IV (01:29)
[2022-05-17] MEDS: SODIUM CHLORIDE 0.9% 1,000 ML 1000 ML IV (01:29)
[2022-05-17] MEDS: ONDANSETRON 4 MG/2 ML INJ IV (01:29)
--- NOTE | 2022-05-17 01:30 | PC.NURSE ---
approached the RN to say that the patient was itching and that she thinks that she is having a reaction to the fentanyl - MD aware - orders for benadryl received
--- NOTE | 2022-05-17 01:39 | PC.NURSE ---
Medicated at this time - states that she feels hives all over and is itchy - no obvious hives noted - pt wiggling stating that she is itchy
[2022-05-17] MEDS: diphenhydrAMINE 50 MG/ML VIAL 25 MG IV (01:44)
--- NOTE | 2022-05-17 02:10 | PC.NURSE ---
To CT via stretcher with tech
--- NOTE | 2022-05-17 02:28 | PC.NURSE ---
Returns to the room from radiology
[2022-05-17 02:30] LABS: Creatine Kinase 36 U/L (30-135); Troponin I < 0.012 ng/mL (0.01-0.034)
[2022-05-17 02:31] LABS: BUN Creatinine Ratio 29.1 (6-22); Blood Urea Nitrogen 16 mg/dL (7-17); Carbon Dioxide 27 mmol/L (22-32); Chloride 101 mmol/L (98-107); Estimated Glomerular Filt Rate > 60 mL/min (>60); Glucose 146 mg/dL (80-110); Potassium 3.9 mmol/L (3.4-5.1); Sodium 139 mmol/L (137-145)
[2022-05-17 02:32] LABS: Alanine Aminotransferase 248 IU/L (<35); Alkaline Phosphatase 92 U/L (38-126); Aspartate Aminotransferase 543 IU/L (14-36); Bilirubin Total 1.4 mg/dL (0.2-1.3); Calcium 9.2 mg/dL (8.4-10.2); Magnesium 1.8 mg/dL (1.6-2.3)
[2022-05-17 02:33] LABS: Albumin 4.6 g/dL (3.5-5.0); Albumin Globulin Ratio 1.4 (1.0-2.8); Globulin 3.3 g/dL (1.7-4.1); HEMOLYSIS < 15 (0-50); Lipase 112 U/L (23-300); Total Protein 7.9 g/dL (6.3-8.2)
[2022-05-17 06:45] LABS: Neutrophils Absolute Manual 10773 /uL (3000-5900); Total Cells Counted 100
[2022-05-17 06:46] LABS: RBC Morphology Normal Morphology
== END 2022-05-17 03:50 | disposition home or self-care (01) ==
PROVIDERS: Emergency Provider Emergency Medicine; PCP Family Medicine
DX: R10.10 Upper abdominal pain, unspecified (principal); R03.0 Elevated blood-pressure reading, without diagnosis of hypertension; R79.89 Other specified abnormal findings of blood chemistry
CPT/HCPCS: 36415; 71045; 74177; 80053; 82550; 82553; 83690; 83735; 84484; 85007; 85025; 93005; 93010; 96361; 96374; 96375; 99284; J1200; J2405; J3010; Q9967

== ENCOUNTER → 2022-05-31 14:26 | Outpatient (CLI) | payer MEDICARE, OTHER, SELFPAY ==
[2022-05-31 15:27] LABS: Add Manual Diff / Slide Review NO; Basophils Absolute Auto 100 /uL (0-100); Basophils Percent Auto 1.4 % (0-2); Eosinophils Absolute Auto 300 /uL (0-450); Eosinophils Percent Auto 4.8 % (2-4); Hematocrit 36.2 % (36-46); Hemoglobin 12.3 g/dL (12.0-16.0); Lymphocytes Absolute Auto 1800 /uL (1100-4500); Lymphocytes Percent Auto 31.9 % (25-40); Mean Corpuscular Hemoglobin 30.3 PG (26-34); Mean Corpuscular Volume 89.1 fL (80-100); Monocytes Absolute Auto 500 /uL (0-900); Monocytes Percent Auto 9.3 % (3-14); Neutrophils Absolute Auto 2900 /uL (1500-7000); Neutrophils Percent Auto 52.6 % (50-75); Platelet Count 246 X10^3/uL (150-400); Red Blood Cell Count 4.06 X10^6/uL (4.0-5.2); Red Cell Distribution Width 12.7 % (11.6-14.8); White Blood Cell Count 5.5 X10^3/uL (4.5-11.0)
[2022-05-31 15:42] LABS: Alanine Aminotransferase 209 IU/L (<35); Albumin 4.2 g/dL (3.5-5.0); Albumin Globulin Ratio 1.2 (1.0-2.8); Alkaline Phosphatase 192 U/L (38-126); Aspartate Aminotransferase 204 IU/L (14-36); BUN Creatinine Ratio 26.7 (6-22); Bilirubin Total 2.6 mg/dL (0.2-1.3); Blood Urea Nitrogen 16 mg/dL (7-17); Calcium 9.1 mg/dL (8.4-10.2); Carbon Dioxide 29 mmol/L (22-32); Chloride 99 mmol/L (98-107); Estimated Glomerular Filt Rate > 60 mL/min (>60); Globulin 3.4 g/dL (1.7-4.1); Glucose 93 mg/dL (80-110); Potassium 4.1 mmol/L (3.4-5.1); Sodium 139 mmol/L (137-145); Total Protein 7.6 g/dL (6.3-8.2)
[2022-06-01 15:07] LABS: HEMOLYSIS 18 (0-50); Lipase 181 U/L (23-300)
== END ==
PROVIDERS: PCP Family Medicine; Referring Provider Family Medicine; Visit Provider Family Medicine
DX: R79.89 Other specified abnormal findings of blood chemistry (principal)
CPT/HCPCS: 36415; 80053; 83690; 85025

== ENCOUNTER → 2022-06-07 06:54 | Outpatient (CLI) | payer MEDICARE, OTHER, SELFPAY ==
--- NOTE | 2022-06-07 06:57 | DI.US.S_ITS ---
PROCEDURE: US ABDOMEN LIMITED INDICATIONS: ELEVATED LIVER ENZYMES TECHNIQUE: Real-time focused scanning was performed of the abdomen, with image documentation. COMPARISON: None. FINDINGS: The liver is normal in size. The parenchyma is mildly, homogeneously echogenic compared to kidney. No visible intrahepatic masses or biliary dilatation. Main portal vein is patent with appropriate direction of flow. The extrahepatic common duct is normal caliber at 5 mm. Gallbladder is distended and has a normal wall thickness at 2.4 mm. At the neck, there is a flat 8 mm slightly echogenic focus without shadow which does not move. No vascularity with color Doppler imaging. No other stones or sludge. No pericholecystic fluid or sonographic Pinon sign. The visible portion of the pancreas is normal without ductal dilatation. There is no free fluid in the right upper quadrant. IMPRESSION: 1. 8 mm nonshadowing stone, adherent sludge, less likely polyp near the gallbladder neck. 2. No evidence of acute cholecystitis or biliary obstruction. 3. Mild hepatic echogenicity suggesting mild steatosis or other intrinsic liver disease. Dictated by: Hannah Cason M.D. on 06/07/2022 at 11:16 Approved by: Hannah Cason M.D. on 06/07/2022 at 11:19
== END ==
PROVIDERS: PCP Family Medicine; Referring Provider Family Medicine; Visit Provider Family Medicine
DX: K80.20 Calculus of gallbladder without cholecystitis without obstruction (principal); K82.8 Other specified diseases of gallbladder; R74.8 Abnormal levels of other serum enzymes
CPT/HCPCS: 76705

== ENCOUNTER → 2022-06-28 12:43 | Outpatient (CLI) | payer MEDICARE, OTHER, SELFPAY ==
[2022-06-28 16:36] LABS: Alanine Aminotransferase 24 IU/L (<35); Albumin 4.1 g/dL (3.5-5.0); Albumin Globulin Ratio 1.4 (1.0-2.8); Alkaline Phosphatase 82 U/L (38-126); Aspartate Aminotransferase 26 IU/L (14-36); BUN Creatinine Ratio 26.4 (6-22); Bilirubin Total 0.4 mg/dL (0.2-1.3); Blood Urea Nitrogen 19 mg/dL (7-17); Calcium 9.4 mg/dL (8.4-10.2); Carbon Dioxide 30 mmol/L (22-32); Chloride 103 mmol/L (98-107); Estimated Glomerular Filt Rate > 60 mL/min (>60); Globulin 2.9 g/dL (1.7-4.1); Glucose 89 mg/dL (80-110); HEMOLYSIS < 15 (0-50); Potassium 4.2 mmol/L (3.4-5.1); Sodium 140 mmol/L (137-145)
[2022-06-29 16:11] LABS: Lipase 201 U/L (23-300)
== END ==
PROVIDERS: PCP Family Medicine; Referring Provider Family Medicine; Visit Provider Family Medicine
DX: R74.8 Abnormal levels of other serum enzymes (principal)
CPT/HCPCS: 36415; 80053; 83690

== ENCOUNTER → 2023-05-25 10:33 | Outpatient (CLI) | payer MEDICARE, OTHER, SELFPAY ==
[2023-05-25 11:23] LABS: Add Manual Diff / Slide Review NO; Basophils Absolute Auto 100 /uL (0-100); Basophils Percent Auto 2.5 % (0-2); Eosinophils Absolute Auto 200 /uL (0-450); Eosinophils Percent Auto 3.9 % (2-4); Hematocrit 39.8 % (36-46); Hemoglobin 13.7 g/dL (12.0-16.0); Lymphocytes Absolute Auto 2700 /uL (1100-4500); Lymphocytes Percent Auto 49.8 % (25-40); Mean Corpuscular HGB Conc 34.3 % (30-36); Mean Corpuscular Hemoglobin 30.2 PG (26-34); Monocytes Absolute Auto 400 /uL (0-900); Neutrophils Absolute Auto 1900 /uL (1500-7000); Neutrophils Percent Auto 35.8 % (50-75); Platelet Count 261 X10^3/uL (150-400); Red Blood Cell Count 4.52 X10^6/uL (4.0-5.2); Red Cell Distribution Width 12.2 % (11.6-14.8); White Blood Cell Count 5.4 X10^3/uL (4.5-11.0)
[2023-05-25 11:42] LABS: Alanine Aminotransferase 20 IU/L (<35); Albumin 4.5 g/dL (3.5-5.0); Albumin Globulin Ratio 1.4 (1.0-2.8); Alkaline Phosphatase 62 U/L (38-126); Aspartate Aminotransferase 30 IU/L (14-36); BUN Creatinine Ratio 24.2 (6-22); Bilirubin Total 0.7 mg/dL (0.2-1.3); Blood Urea Nitrogen 15 mg/dL (7-17); Calcium 9.6 mg/dL (8.4-10.2); Carbon Dioxide 30 mmol/L (22-32); Chloride 102 mmol/L (98-107); Cholesterol 230 mg/dL (140-199); Estimated Glomerular Filt Rate > 60 mL/min (>60); Globulin 3.3 g/dL (1.7-4.1); Glucose 86 mg/dL (80-110); HDL Cholesterol 52 mg/dL (40-60); HEMOLYSIS < 15 (0-50); LDL Cholesterol Calculated 152 mg/dL (<100); Potassium 4.1 mmol/L (3.4-5.1); Sodium 138 mmol/L (137-145); Total Protein 7.8 g/dL (6.3-8.2); Triglycerides 129 mg/dL (35-150)
== END ==
PROVIDERS: PCP Family Medicine; Referring Provider Family Medicine; Visit Provider Family Medicine
DX: E78.5 Hyperlipidemia, unspecified (principal); J45.20 Mild intermittent asthma, uncomplicated
CPT/HCPCS: 36415; 80053; 80061; 84443; 85025

== ENCOUNTER → 2024-04-30 11:56 | Outpatient (CLI) | payer MEDICARE, SELFPAY ==
[2024-04-30 13:50] LABS: Add Manual Diff / Slide Review NO; Basophils Absolute Auto 100 /uL (0-100); Basophils Percent Auto 1.9 % (0-2); Eosinophils Absolute Auto 100 /uL (0-450); Eosinophils Percent Auto 1.6 % (2-4); Hematocrit 39.5 % (36-46); Hemoglobin 13.5 g/dL (12.0-16.0); Lymphocytes Absolute Auto 2900 /uL (1100-4500); Mean Corpuscular HGB Conc 34.2 % (30-36); Mean Corpuscular Hemoglobin 30.4 PG (26-34); Mean Corpuscular Volume 88.8 fL (80-100); Monocytes Absolute Auto 500 /uL (0-900); Monocytes Percent Auto 7.6 % (3-14); Neutrophils Absolute Auto 3400 /uL (1500-7000); Neutrophils Percent Auto 47.9 % (50-75); Platelet Count 271 X10^3/uL (150-400); Red Blood Cell Count 4.45 X10^6/uL (4.0-5.2); White Blood Cell Count 7.2 X10^3/uL (4.5-11.0)
[2024-04-30 14:24] LABS: Alanine Aminotransferase 17 IU/L (<35); Albumin 4.4 g/dL (3.5-5.0); Albumin Globulin Ratio 1.7 (1.0-2.8); Alkaline Phosphatase 66 U/L (38-126); Aspartate Aminotransferase 27 IU/L (14-36); BUN Creatinine Ratio 25.8 (6-22); Bilirubin Total 0.7 mg/dL (0.2-1.3); Blood Urea Nitrogen 16 mg/dL (7-17); Calcium 9.6 mg/dL (8.4-10.2); Carbon Dioxide 26 mmol/L (22-32); Chloride 103 mmol/L (98-107); Cholesterol 235 mg/dL (140-199); Estimated Glomerular Filt Rate > 60 mL/min (>60); Globulin 2.6 g/dL (1.7-4.1); Glucose 81 mg/dL (80-110); HDL Cholesterol 48 mg/dL (40-60); HEMOLYSIS < 15 (0-50); LDL Cholesterol Calculated 165 mg/dL (<100); Potassium 4.3 mmol/L (3.4-5.1); Sodium 138 mmol/L (137-145); Triglycerides 108 mg/dL (35-150)
[2024-04-30 14:52] LABS: TSH w/ Reflex to FT4 1.27 uIU/mL (0.47-4.68)
== END ==
PROVIDERS: PCP Family Medicine; Referring Provider Family Medicine; Visit Provider Family Medicine
DX: E78.00 Pure hypercholesterolemia, unspecified (principal); J45.20 Mild intermittent asthma, uncomplicated; Z79.899 Other long term (current) drug therapy
CPT/HCPCS: 36415; 80053; 80061; 84443; 85025

== ENCOUNTER → 2024-12-24 07:30 | Outpatient (CLI) | payer MEDICARE, SELFPAY ==
[2024-12-24 08:16] LABS: Add Manual Diff / Slide Review NO; Basophils Absolute Auto 100 /uL (0-100); Basophils Percent Auto 2.1 % (0-2); Eosinophils Absolute Auto 200 /uL (0-450); Eosinophils Percent Auto 3.5 % (2-4); Hematocrit 40.1 % (36-46); Hemoglobin 13.5 g/dL (12.0-16.0); Lymphocytes Absolute Auto 2600 /uL (1100-4500); Lymphocytes Percent Auto 48.1 % (25-40); Mean Corpuscular HGB Conc 33.8 % (30-36); Mean Corpuscular Hemoglobin 30.1 PG (26-34); Mean Corpuscular Volume 89.3 fL (80-100); Monocytes Absolute Auto 500 /uL (0-900); Monocytes Percent Auto 9.3 % (3-14); Neutrophils Absolute Auto 2000 /uL (1500-7000); Platelet Count 266 X10^3/uL (150-400); Red Blood Cell Count 4.49 X10^6/uL (4.0-5.2); Red Cell Distribution Width 12.3 % (11.6-14.8); White Blood Cell Count 5.5 X10^3/uL (4.5-11.0)
[2024-12-24 08:37] LABS: Alanine Aminotransferase 21 IU/L (<35); Albumin 4.6 g/dL (3.5-5.0); Albumin Globulin Ratio 1.8 (1.0-2.8); Alkaline Phosphatase 59 U/L (38-126); Aspartate Aminotransferase 30 IU/L (14-36); BUN Creatinine Ratio 31.9 (6-22); Bilirubin Total 0.7 mg/dL (0.2-1.3); Blood Urea Nitrogen 23 mg/dL (7-17); Calcium 9.8 mg/dL (8.4-10.2); Carbon Dioxide 29 mmol/L (22-32); Chloride 104 mmol/L (98-107); Cholesterol 235 mg/dL (140-199); Estimated Glomerular Filt Rate > 60 mL/min (>60); Globulin 2.5 g/dL (1.7-4.1); Glucose 94 mg/dL (70-99); HDL Cholesterol 49 mg/dL (40-60); HEMOLYSIS < 15 (0-50); LDL Cholesterol Calculated 161 mg/dL (<100); Potassium 4.3 mmol/L (3.4-5.1); Sodium 140 mmol/L (137-145); Total Protein 7.1 g/dL (6.3-8.2); Triglycerides 123 mg/dL (35-150)
[2024-12-24 09:05] LABS: TSH w/ Reflex to FT4 2.83 uIU/mL (0.47-4.68)
== END ==
PROVIDERS: PCP Family Medicine; Referring Provider Family Medicine; Visit Provider Family Medicine
DX: E78.00 Pure hypercholesterolemia, unspecified (principal)
CPT/HCPCS: 36415; 80053; 80061; 84443; 85025

== ENCOUNTER → 2025-06-13 16:00 | Outpatient (CLI) | payer MEDICARE, SELFPAY ==
[2025-06-13 17:32] LABS: Hematocrit 38.9 % (36-46); Hemoglobin 13.4 g/dL (12.0-16.0); Mean Corpuscular HGB Conc 34.6 % (30-36); Mean Corpuscular Hemoglobin 30.6 PG (26-34); Mean Corpuscular Volume 88.4 fL (80-100); Platelet Count 254 X10^3/uL (150-400)
[2025-06-13 18:23] LABS: Alanine Aminotransferase 21 IU/L (<35); Albumin 4.6 g/dL (3.5-5.0); Albumin Globulin Ratio 1.7 (1.0-2.8); Alkaline Phosphatase 71 U/L (38-126); Blood Urea Nitrogen 22 mg/dL (7-17); Calcium 9.4 mg/dL (8.4-10.2); Carbon Dioxide 28 mmol/L (22-32); Chloride 102 mmol/L (98-107); Estimated Glomerular Filt Rate > 60 mL/min (>60); Globulin 2.7 g/dL (1.7-4.1); Glucose 93 mg/dL (70-99); HEMOLYSIS < 15 (0-50); Potassium 4.4 mmol/L (3.4-5.1); Sodium 140 mmol/L (137-145); Total Protein 7.3 g/dL (6.3-8.2)
[2025-06-13 18:52] LABS: TSH w/ Reflex to FT4 2.41 uIU/mL (0.47-4.68)
[2025-06-13 18:56] LABS: Basophils Percent Manual 1.0 % (0-1); Eosinophils Percent Manual 5.0 % (2-4); Lymphocytes Percent Manual 50.0 % (25-45); Monocytes Percent Manual 7.0 % (2-11); Neutrophils Absolute Manual 2257 /uL (3000-5900); RBC Morphology Normal Morphology; Segmented Neutrophils Percent 37.0 % (38-70); Total Cells Counted 100
[2025-06-13 19:27] LABS: Folate > 20.0 ng/mL (2.76-20.0); Vitamin B12 395 pg/mL (239-931)
== END ==
PROVIDERS: PCP Family Medicine; Referring Provider Family Medicine; Visit Provider Family Medicine
DX: R41.3 Other amnesia (principal)
CPT/HCPCS: 36415; 80053; 82607; 82746; 84443; 85025

== ENCOUNTER → 2025-07-01 07:17 | Outpatient (CLI) | payer MEDICARE, SELFPAY ==
--- NOTE | 2025-07-01 07:18 | DI.MRI.S_ITS ---
PROCEDURE: MR HEAD/BRAIN WO/W CON INDICATIONS: memory loss alzhimers TECHNIQUE: Noncontrast axial T1 spin echo, axial T2 fast spin echo, sagittal and axial FLAIR, coronal T2 fast spin echo, axial gradient echo, axial diffusion and ADC through the brain. After the administration of contrast, axial and coronal and sagittal T1 spin echo with fat saturation through the brain. COMPARISON: None. FINDINGS: Image quality: Excellent. CSF spaces: Basal cisterns are patent. No extra-axial fluid collections. Ventricles are normal in size and shape. Brain: No midline shift. No intracranial bleeds or masses. No abnormal intracranial enhancement. There is cerebral volume loss for age. There is periventricular white matter chronic small vessel ischemic change. The brainstem appears normal. Diffusion-weighted images demonstrate no acute infarct. No chronic ischemic insults. Normal intravascular flow voids are present. Skull and face: Calvarial marrow is normal in signal. Orbits appear normal. Sinuses: Sinuses and mastoids appear clear. IMPRESSION: 1. Volume loss and small vessel ischemic disease. 2. No acute process. No recent infarct. Dictated by: Jim Zuniga M.D. on 07/01/2025 at 9:41 Approved by: Jim Zuniga M.D. on 07/01/2025 at 9:43
== END ==
LOC: MRI 07:18
PROVIDERS: PCP Family Medicine; Referring Provider Family Medicine; Visit Provider Family Medicine
DX: R41.3 Other amnesia (principal); I67.9 Cerebrovascular disease, unspecified
CPT/HCPCS: 70553; A9579